=== PATIENT | female | born 1995 | race American Indian/Alaskan Native ===

== ENCOUNTER 2017-10-31 17:13 | Emergency (ER) | payer OTHER, BC ==
[2017-10-31 17:32] VITALS: BMI 26.6
[2017-10-31 17:34] VITALS: BP 104/57; RESP 19; O2SAT 100
[2017-10-31 17:39] VITALS: PULSE 73; TEMP 98.9
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
--- NOTE | 2017-10-31 21:52 | RAD ---
PROCEDURE: Cervical Spine Radiographs. HISTORY: Pain. COMPARISON: None. FINDINGS: BONES: Alignment maintained. No fracture. Dens Intact. DISC SPACES: Normal. SOFT TISSUES: Normal. No prevertebral soft tissue swelling. OTHER FINDINGS: None. IMPRESSION: No radiographic evidence of acute fracture or subluxation.
== END 2017-10-31 20:15 | disposition home or self-care (01) ==
LOC: ED 17:13 → MERGE 17:13 → ED 20:15
DX: M54.2 Cervicalgia (principal); M54.5 Low back pain
CPT/HCPCS: 72050; 72110; 81025; 96372; 99285; J1885